=== PATIENT | female | born 1975 | race Caucasian/White ===

== ENCOUNTER 2016-11-11 20:51 | Inpatient (IN) | payer MEDICAID ==
[~2016-11-11] VITALS: Ht 157.5 cm; Wt 68.0 kg
[2016-11-11] MEDS ORDERED: LABETALOL HCL 20MG/4ML CARPUJECT IV ONE (23:30)
[2016-11-11 23:57] LABS: BASOPHILS % 0.8 % (0.0-2.0); EOSINOPHILS % 4.5 % (0.0-5.0); HEMATOCRIT. 37.9 % (36.0-48.0); HEMOGLOBIN. 13.4 g/dL (12.0-16.0); LYMPHOCYTES % 34.6 % (20.0-50.0); MEAN CORPUSCULAR HEMOGLOBIN 29.6 pg (28.0-32.0); MEAN CORPUSCULAR HGB CONC 35.5 g/dL (31.0-37.0); MEAN CORPUSCULAR VOLUME 83.6 fL (81.0-99.0); MEAN PLATELET VOLUME 8.2 fl (7.4-10.4); MONOCYTES % 8.4 % (2.0-8.0); NEUTROPHILS % 51.7 % (40.0-76.0); PLATELET 243 x1000/uL (130-400); RED BLOOD CELL COUNT 4.53 mill/uL (4.2-5.4); RED CELL DISTRIBUTION WIDTH 13.4 % (11.6-14.6); WHITE BLOOD COUNT 9.6 x1000/uL (4.5-11.0)
[2016-11-12] MEDS ORDERED: HYDROCODONE/ACETAMINOPHEN 5/325MG TABLET PO STA (00:02)
[2016-11-12 00:03] LABS: PROTHROMBIN TIME 10.6 sec
[2016-11-12 00:06] LABS: HCG SCREEN NEGATIVE
[2016-11-12 00:13] LABS: ALANINE AMINOTRANSFERASE 21 IU/L (13-61); ALBUMIN 3.9 g/dL (3.4-5.0); ANION GAP 14; CARBON DIOXIDE 27 mEq/L (21-32); CHLORIDE 103 mEq/L (98-107); ETHANOL BLOOD < 10 mg/dL; INDEX HEMOLYSI 1 (1-3); INDEX ICTERIC 1 (1-4); INDEX LIPEMIC 1 (1-3); NT PRO B-TYPE NATRIURETIC PEP 63 pg/mL (5-125); TROPONIN I < 0.02 ng/mL (0.00-0.04); UREA NITROGEN BLOOD 13 mg/dL (7-21); eGFR > 60 mL/min (>60)
[2016-11-12] MEDS ORDERED: NITROGLYCERIN OINT 1GM/INCH UDPKT TD ONE (00:15)
[2016-11-12] MEDS ORDERED: ASPIRIN 81MG TABLET PO ONE (00:15)
[2016-11-12 00:41] LABS: CLARITY URINE CLOUDY (CLEAR); COLOR URINE YELLOW (YELLOW); GLUCOSE URINE NEGATIVE (NEGATIVE); KETONES URINE NEGATIVE (NEGATIVE); LEUKOCYTE ESTERASE URINE NEGATIVE (NEGATIVE); NITRITE URINE NEGATIVE (NEGATIVE); OCCULT BLOOD URINE NEGATIVE (NEGATIVE); PROTEIN URINE NEGATIVE (NEGATIVE); SPECIFIC GRAVITY URINE 1.013 (1.005-1.030); UROBILINOGEN URINE 0.2 E.U./dL (0.2-1.0)
[2016-11-12 01:01] LABS: *AMPHETAMINES SCREEN URINE NEGATIVE (NEGATIVE); *BARBITURATES SCREEN URINE NEGATIVE (NEGATIVE); *BENZODIAZEPINES SCREEN URINE NEGATIVE (NEGATIVE); *COCAINE SCREEN URINE NEGATIVE (NEGATIVE); CANNABINOID URINE SCREEN NEGATIVE (NEGATIVE); ECSTASY MDMA SCREEN URINE NEGATIVE (NEGATIVE); METHADONE URINE SCREEN NEGATIVE (NEGATIVE); OPIATES URINE SCREEN NEGATIVE (NEGATIVE); PHENCYCLIDINE URINE SCREEN NEGATIVE (NEGATIVE)
[2016-11-12] MEDS ORDERED: HYDRALAZINE 20MG/ML VIAL IV NR (01:15)
[2016-11-12 01:29] LABS: AMORPHOUS SEDIMENT URINE 1+ /lpf; BACTERIA URINE NONE SEEN; RBC URINE NONE SEEN /hpf (0-2); SQUAMOUS EPITHELIAL CELL URINE FEW /lpf (RARE/1+); WBC URINE 0-2 /hpf (0-2)
[2016-11-12 11:00] VITALS: BP 147/88
[2016-11-12] MEDS ORDERED: ACETAMINOPHEN 325MG TABLET PO PRN (12:00)
[2016-11-12] MEDS ORDERED: CLONIDINE 0.1MG TABLET PO PRN (12:00)
[2016-11-12] MEDS ORDERED: HYDROCODONE/ACETAMINOPHEN 5/325MG TABLET PO PRN (12:00)
[2016-11-12] MEDS ORDERED: ONDANSETRON HCL 4MG/2ML VIAL IV PRN (12:00)
[2016-11-12] MEDS: AMLODIPINE 10MG TABLET PO SCH (12:38)
[2016-11-12 16:00] VITALS: BP 112/76
[2016-11-12 20:00] VITALS: BP 139/76
[2016-11-12 22:00] VITALS: BP 133/74
[2016-11-13] VITALS: BP 125/62
[2016-11-13 02:00] VITALS: BP 115/64
[2016-11-13 04:00] VITALS: BP 125/81
[2016-11-13 06:53] LABS: BASOPHILS % 0.7 % (0.0-2.0); EOSINOPHILS % 2.9 % (0.0-5.0); HEMATOCRIT. 36.9 % (36.0-48.0); LYMPHOCYTES % 49.3 % (20.0-50.0); MEAN CORPUSCULAR HEMOGLOBIN 29.3 pg (28.0-32.0); MEAN CORPUSCULAR HGB CONC 35.1 g/dL (31.0-37.0); MEAN CORPUSCULAR VOLUME 83.6 fL (81.0-99.0); MEAN PLATELET VOLUME 8.8 fl (7.4-10.4); MONOCYTES % 9.1 % (2.0-8.0); PLATELET 227 x1000/uL (130-400); RED BLOOD CELL COUNT 4.42 mill/uL (4.2-5.4); RED CELL DISTRIBUTION WIDTH 13.2 % (11.6-14.6); WHITE BLOOD COUNT 6.5 x1000/uL (4.5-11.0)
[2016-11-13 07:12] LABS: ALANINE AMINOTRANSFERASE 19 IU/L (13-61); ALBUMIN 3.5 g/dL (3.4-5.0); ANION GAP 15; CALCIUM 10.1 mg/dL (8.5-10.1); CARBON DIOXIDE 25 mEq/L (21-32); CHLORIDE 103 mEq/L (98-107); INDEX HEMOLYSI 1 (1-3); INDEX ICTERIC 1 (1-4); INDEX LIPEMIC 1 (1-3); UREA NITROGEN BLOOD 15 mg/dL (7-21); eGFR > 60 mL/min (>60)
[2016-11-13 08:00] VITALS: BP 115/71
[2016-11-13] MEDS: AMLODIPINE 10MG TABLET PO SCH (08:12)
[2016-11-13] MEDS ORDERED: ASPIRIN 81MG EC TABLET PO SCH (09:00)
[2016-11-13 11:22] VITALS: BP 135/93
[2016-11-13 11:48] VITALS: BP 135/93
== END 2016-11-13 12:40 | disposition home or self-care (01) | DRG 199 ==
LOC: ER 21:00 → 7WST 11-12 03:37
PROVIDERS: ADMIT Hospitalist; ATTEND Hospitalist
DX: I16.0 Hypertensive urgency (principal); D25.9 Leiomyoma of uterus, unspecified; E78.00 Pure hypercholesterolemia, unspecified; R51 Headache; Z91.14 Patient's other noncompliance with medication regimen; Z82.49 Family history of ischemic heart disease and other diseases of the circulatory system; Z90.710 Acquired absence of both cervix and uterus
CPT/HCPCS: 36415; 70450; 71010; 74176; 80053; 80305; 81001; 81025; 82962; 83605; 83880; 84484; 84703; 85025; 85610; 93005; 96374; 99291; G0482; J3490

== ENCOUNTER 2018-06-06 11:43 | Emergency (ER) | payer MEDICAID ==
[~2018-06-06] VITALS: Ht 157.5 cm; Wt 82.0 kg
[2018-06-06] MEDS ORDERED: IBUPROFEN 600MG TABLET PO ONE (14:30)
[2018-06-06] MEDS ORDERED: HYDRALAZINE HCL 10MG TABLET PO ONE (14:30)
[2018-06-06 15:26] LABS: BASOPHILS % 0.9 % (0.0-2.0); EOSINOPHILS % 4.6 % (0.0-5.0); HEMATOCRIT. 41.7 % (36.0-48.0); HEMOGLOBIN. 14.7 g/dL (12.0-16.0); LYMPHOCYTES % 35.7 % (20.0-50.0); MEAN CORPUSCULAR HEMOGLOBIN 31.2 pg (28.0-32.0); MEAN CORPUSCULAR VOLUME 88.6 fL (81.0-99.0); MEAN PLATELET VOLUME 8.3 fl (7.4-10.4); MONOCYTES % 5.3 % (2.0-8.0); NEUTROPHILS % 53.5 % (40.0-76.0); PLATELET 231 x1000/uL (130-400); RED BLOOD CELL COUNT 4.71 mill/uL (4.2-5.4); RED CELL DISTRIBUTION WIDTH 13.4 % (11.6-14.6)
[2018-06-06 15:29] LABS: CHLORIDE 109 mEq/L (98-107)
[2018-06-06 15:41] LABS: HCG SCREEN NEGATIVE
[2018-06-06 16:13] VITALS: BP 154/89
== END 2018-06-06 16:45 | disposition home or self-care (01) ==
LOC: ER 11:43
DX: I10 Essential (primary) hypertension (principal); R51 Headache; E05.90 Thyrotoxicosis, unspecified without thyrotoxic crisis or storm; E78.00 Pure hypercholesterolemia, unspecified; Z90.710 Acquired absence of both cervix and uterus
CPT/HCPCS: 36415; 80048; 84443; 84703; 85025; 99284

== ENCOUNTER 2018-10-29 10:33 | Emergency (ER) | payer MEDICAID ==
[~2018-10-29] VITALS: Ht 154.9 cm; Wt 86.0 kg
[2018-10-29] MEDS ORDERED: DEXAMETHASONE 10 MG/ML VIAL IM ONE (13:15)
[2018-10-29] MEDS ORDERED: ALBUTEROL (0.5%) 2.5MG/0.5ML NEB HHN ONE (13:15)
[2018-10-29 15:43] VITALS: BP 145/80
== END 2018-10-29 15:43 | disposition home or self-care (01) ==
LOC: ER 10:33
DX: J06.9 Acute upper respiratory infection, unspecified (principal); I10 Essential (primary) hypertension; E78.00 Pure hypercholesterolemia, unspecified; Z90.710 Acquired absence of both cervix and uterus
CPT/HCPCS: 71045; 81025; 94640; 96372; 99283; J1100; J7611

== ENCOUNTER 2019-05-28 18:05 | Emergency (ER) | payer MEDICAID ==
[~2019-05-28] VITALS: Ht 162.6 cm; Wt 84.0 kg
[2019-05-28 18:06] VITALS: BP 175/112
[2019-05-28] MEDS ORDERED: METH10TA7 PO (18:18)
== END 2019-05-28 20:31 | disposition left against medical advice (07) ==
LOC: ER 18:05
DX: I10 Essential (primary) hypertension (principal); Z53.21 Procedure and treatment not carried out due to patient leaving prior to being seen by health care provider

== ENCOUNTER 2021-11-05 16:46 | Emergency (ER) | payer MEDICAID ==
[~2021-11-05] VITALS: Ht 152.4 cm; Wt 75.0 kg
[~2021-11-05 16:46] MED LIST: METH10TA7 PO
[2021-11-05] MEDS ORDERED: KETOROLAC 60MG/2ML VIAL IM ONE (18:30)
[2021-11-05] MEDS ORDERED: AMOXICILLIN/POTASSIUM CLAVULANATE 875/125MG TAB PO ONE (18:30)
[2021-11-05] MEDS ORDERED: LIDOCAINE HCL/PF 1% 2ML VIAL INFIL ONE (18:30)
[2021-11-05] MEDS ORDERED: TETANUS, DIPHTHERIA, PERTUSSIS VAC/PF 0.5ML (>10YR OLD) IM ONE (18:30)
[2021-11-05] MEDS ORDERED: LIDOCAINE HCL 1% 20ML VIAL (Pyxis) INJ INFIL NR (18:43)
[2021-11-05] MEDS ORDERED: AMOX-424 MT (20:03)
[2021-11-05 20:50] VITALS: BP 137/92
== END 2021-11-05 21:25 | disposition home or self-care (01) ==
LOC: ER 16:46
DX: S51.811A Laceration without foreign body of right forearm, initial encounter (principal); I10 Essential (primary) hypertension; E78.00 Pure hypercholesterolemia, unspecified; Z86.39 Personal history of other endocrine, nutritional and metabolic disease; W54.0XXA Bitten by dog, initial encounter; Y93.89 Activity, other specified; Y92.89 Other specified places as the place of occurrence of the external cause; Y99.8 Other external cause status
CPT/HCPCS: 12002; 73060; 73090; 73130; 81025; 90471; 90715; 96372; 99284; A4217; J1885; J3490; Z7610